=== PATIENT | female | born 1985 | race Caucasian/White ===

== ENCOUNTER 2016-10-20 10:43 | Emergency (ER) | payer MEDICAID ==
[~2016-10-20] VITALS: Ht 162.6 cm; Wt 116.1 kg
[~2016-10-20 10:43] MED LIST: VICODIN
[2016-10-20 10:49] VITALS: BP 150/99; PULSE 82; RESP 16; TEMP 96.7; O2SAT 97
[2016-10-20 12:11] VITALS: BP 142/99; PULSE 82; RESP 16; TEMP 96.7; O2SAT 97
== END 2016-10-20 12:10 | disposition home or self-care (01) ==
LOC: SED 10:43
DX: M25.562 Pain in left knee (principal); I10 Essential (primary) hypertension; Z88.5 Allergy status to narcotic agent
CPT/HCPCS: 73564; 99284

== ENCOUNTER 2019-02-25 09:17 | Emergency (ER) | payer MEDICAID ==
[~2019-02-25] VITALS: Ht 162.6 cm; Wt 115.2 kg
[2019-02-25 09:24] VITALS: BP_SYST 155
--- NOTE | 2019-02-25 09:32 | NUR ---
Patient to ER bed 1 to gown for evaluation. Side rails up. Report given to Dhiraj ELIZONDO.
--- NOTE | 2019-02-25 09:45 | NUR ---
ER at bedside examining patient.
--- NOTE | 2019-02-25 09:58 | NUR ---
Patient given written and verbal discharge instructions and verbalizes understanding. ER MD discussed with patient the results and treatment provided. Patient in stable condition. ID arm band removed. Rx of keflex given. Patient educated on pain management and to follow up with PMD. Pain Scale 0/10. Opportunity for questions provided and answered. Medication side effect fact sheet provided.
--- NOTE | 2019-02-25 09:58 | NUR ---
RN assess pt. pt states she has a saliva stone on the right side jaw. MD has seen pt , and gave advice to massage the area, drink plenty of fluids, and use lemon to help dissolve the stone. Pt is otherwise stable and of normal development. is ready to DC pt home with prescription for Keflex and pain medication.
[2019-02-25 10:21] VITALS: BP_SYST 134
== END 2019-02-25 10:21 | disposition home or self-care (01) ==
LOC: SED 09:17
DX: R60.0 Localized edema (principal); I10 Essential (primary) hypertension; Z88.6 Allergy status to analgesic agent
CPT/HCPCS: 99283

== ENCOUNTER 2019-06-15 15:27 | Emergency (ER) | payer MEDICAID ==
[~2019-06-15] VITALS: Ht 162.6 cm; Wt 111.1 kg
[2019-06-15 15:34] VITALS: BP_SYST 187
[2019-06-15] MEDS ORDERED: NACL 0.9% 1,000 ML IV ONE (15:35)
[2019-06-15 16:08] LABS: BASOPHILS # (AUTO) 0.1 K/uL (0.0-0.2); BASOPHILS % (AUTO) 0.6 % (0.0-2.0); EOSINOPHILS # (AUTO) 0.2 K/uL (0.0-0.4); EOSINOPHILS % (AUTO) 1.5 % (0.0-4.0); HEMATOCRIT 40.7 % (36-48); HEMOGLOBIN 13.6 g/dL (12.0-16.0); LYMPHOCYTES # (AUTO) 2.5 K/uL (1.0-5.5); LYMPHOCYTES % (AUTO) 22.2 % (20.5-51.5); MEAN CORPUSCULAR HEMOGLOBIN 29 pg (27-31); MEAN CORPUSCULAR HGB CONC 33 % (32-36); MEAN CORPUSCULAR VOLUME 87 fL (79.0-98.0); MONOCYTES # (AUTO) 0.5 K/uL (0.0-1.0); MONOCYTES % (AUTO) 4.7 % (1.7-9.3); PLATELET COUNT (AUTO) 177 K/uL (130-430); RED BLOOD CELL COUNT(AUTO) 4.66 MIL/uL (4.2-6.2); WHITE BLOOD COUNT (AUTO) 11.2 K/uL (4.8-10.8)
[2019-06-15 16:24] LABS: PROTHROMBIN TIME 9.9 SECS (9.5-12.5)
[2019-06-15 16:25] LABS: CALCIUM 8.8 mg/dL (8.4-11.0); CREATININE 0.64 mg/dL (0.55-1.30); POTASSIUM 3.5 mmol/L (3.5-5.1)
[2019-06-15 16:36] LABS: ALBUMIN 3.8 g/dL (3.4-4.8); TOTAL BILIRUBIN 0.3 mg/dL (0.0-1.0)
--- NOTE | 2019-06-15 18:16 | NUR ---
Patient to ER bed 07 to gown for evaluation. Side rails up.
--- NOTE | 2019-06-15 18:20 | NUR ---
ER at bedside examining patient.
--- NOTE | 2019-06-15 18:25 | NUR ---
Pt came to ER c/o lower abd pain. Pt does not have any other complaints at this time, she is resting in bed, VSS
[2019-06-15 18:57] LABS: BILIRUBIN,URINE NEGATIVE (NEGATIVE); BLOOD, URINE 3+ (NEGATIVE); CLARITY/URINE CLEAR (CLEAR); COLOR,URINE YELLOW (YELLOW); GLUCOSE,URINE NEGATIVE (NEGATIVE); KETONES,URINE NEGATIVE (NEGATIVE); LEUKOCYTE ESTERASE ,URINE NEGATIVE (NEGATIVE); NITRITE, URINE NEGATIVE (NEGATIVE); PROTEIN URINE NEGATIVE (NEGATIVE); UROBILINOGEN,URINE 0.2 (0.2-1.0)
--- NOTE | 2019-06-15 19:26 | NUR ---
Report given to Liliana
[2019-06-15 19:38] LABS: BACTERIA,URINE RARE /HPF (None Seen); MUCUS,URINE None Seen /LPF (None Seen); WBC,URINE 0-3 /HPF (0-3)
[2019-06-15 20:03] VITALS: BP_SYST 128
--- NOTE | 2019-06-15 20:03 | NUR ---
Patient given written and verbal discharge instructions and verbalizes understanding. ER MD Dr. Wan discussed with patient the results and treatment provided. Patient in stable condition. ID arm band removed. IV catheter removed intact and dressing applied, no active bleeding. Rx of tylenol with codeine, zofran and naprosyn given. Patient educated on pain management and to follow up with PMD. Pain Scale 0/10. Opportunity for questions provided and answered. Medication side effect fact sheet provided.
== END 2019-06-15 20:03 | disposition home or self-care (01) ==
LOC: SED 15:27
DX: N83.202 Unspecified ovarian cyst, left side (principal); I10 Essential (primary) hypertension; Z88.5 Allergy status to narcotic agent
CPT/HCPCS: 36415; 76830; 76857; 80053; 81000; 81025; 82150; 83605; 83690; 85025; 85610; 85730; 87040; 99284; J7030